=== PATIENT | female | born 1995 | race Caucasian/White ===

== ENCOUNTER 2023-04-11 23:42 | Inpatient (IN) | payer BC, SELFPAY ==
[2023-04-11 23:54] VITALS: BP 109/57; PULSE 74
[2023-04-12] VITALS (14 sets, daily range): BP systolic 110–130; BP diastolic 59–82; PULSE 63–83; RESP 16; TEMP 36.3–37.1; O2SAT 96–97; BMI 28.7
--- NOTE | 2023-04-12 00:45 | PM.OBHPLI ---
OB - H&P: HPI Labor/Induction History of Present Illness Date Seen: 04/12/23 Chief Complaint: The patient is a 28 year old 3 para 1 at 39.6 weeks gestation by LMP, who presents with active labor. She is a patient at [facility] who is on divert. She was told that Adelso was also on divert so she was sent to us. She was found to be complete with a bulging bag per RN exam when she presented. She states that she started jason regularly around 2129. She denies any complications during her , that she was GBS negative and O+ blood type. I do not have records to confirm this information. Records have been requested. Chief complaint: maternity : 3 Para: 1 Narrative: Kika Lake is a 28 year old female History of Present Medical complications: none Labs Blood type: O (+) positive GBS status: negative Review of Systems Status of ROS: Reports: 10 or more systems reviewed and unremarkable except as noted in History and below Meds Home Medications and Allergies Home Medications Medication Instructions Recorded Confirmed Type No Known Home Medications 04/12/23 04/12/23 History Allergies Allergy/AdvReac Type Severity Reaction Status Date / Time No Known Drug Allergies Allergy Verified 04/12/23 00:54 OB - H&P: Exam Physical Exam: Vital signs: Pulse BP 83 127/74 04/12/23 00:37 04/12/23 00:37 Constitutional: Constitutional: no acute distress Routine Neck Exam: Neck: Present full ROM Routine Respiratory Exam: Respiratory: Present CTA bilaterally Routine Cardiovascular Exam: Cardiovascular: RRR Detailed Labor and Delivery Exam: Patient Gravid: Yes Dilation (cm): 10 (per RN exam) Contraction frequency (min): 2 Tachysystole: No Contraction intensity: Strong/Firm Fetus (Single): Amniotic Membrane Status: intact Heart Rate Baseline: 150 Monitor Accelerations: Present Monitor Decelerations: None Hog Operator Variability: Moderate (6-25) Routine Back/Spine/Pelvis Exam: Back/Spine: full ROM Routine Psychiatric Exam: Present normal affect OB - Problem Based A/P Additional Plan (1) Pain during labor: Status: Acute (2) Term : Status: Acute Plan ASSESSMENT:? at 39.6 weeks gestation? GBS negative? Uncomplicated ? PLAN:? 1.Candidate for analgesia of choice. Planning unmedicated .? 2.Anticipate ? 3. Expectant management at this time.? ? Delivery/Labor/Induction Plan Plan: expectant management
--- NOTE | 2023-04-12 01:15 | W.PM.OBVAGDE ---
OB Procedure Vag Delivery Mother Details Mother Details: The patient is a 28 year-old, 3, Para 1, admitted on 04/11/23 at 39.6 Days gestation for active labor.? Cervical exam on admission was 10 cm per RN exam with membranes intact in vertex presentation.? Contractions were every 2-3 minutes.? heart rate demonstrated baseline 150 bpm with moderate variability, + accelerations, - decelerations; a category 1 tracing.? SROM occurred at 0009 with clear fluid.? : 3 Para: 1 Weeks Gestation: 39.6 Admission Date: 04/11/23 Additional Details Amniotic Membrane Status: SROM Amniotic Membrane Rupture Date: 04/12/23 Amniotic Membrane Rupture Time: 00:09 Amniotic Membrane Fluid Description: Clear Analgesia/Anesthesia Type: None Waterbirth: No Pitcoin: No Intrapartal Events: Precipitous Labor <3 Hrs Labor Onset: 21:30 Complete: 23:28 Pushin:09 Heart: heart tones during second stage were category 2 with baseline 150, +accels, -decels and moderate variability. Delivery Details Delivery Date: 04/12/23 Delivery Time: 00:11 Route of delivery: Gender: Female Viability: Alive; Heart Rate Present Position at Delivery: OA Delivery Details: At 0011 a viable female delivered in vertex YARIEL presentation over intact perineum via spontaneous vaginal delivery.? was placed on maternal abdomen.? Cord was clamped and cut after a >5 minute delay.? Nose and mouth were bulb suctioned.? weight pending.? 7 at 1 minute and 8 at 5 minutes.? Shoulder dystocia: no.? Nuchal cord: no.? 1 Minute Interval Total Score: 7 5 Minute Interval Total Score: 8 Additional Details Shoulder Dystocia: No Placenta Delivery Time: 00:17 Placental Delivery Description: Spontaneous Procedure Done: only Blood Loss: 100 Laceration: Perineal - 1st Degree (not repaired) Blood Loss Measurement Type: QBL Bakri Used: No Sponge/Need Count Correct: Yes Cord Vessel Description: 3 Vessels and True Knot Event Summary Status: Mother and infant were stable after delivery. Disposition: floor
[2023-04-12] MEDS: IBUPROFEN 600 MG TABLET PO ×3 (05:00→18:03)
[2023-04-12] MEDS: ACETAMINOPHEN 500 MG TABLET 1000 MG PO ×3 (07:51→21:55)
[2023-04-12] MEDS: DOCUSATE SODIUM 100 MG CAPSULE PO (07:51)
[2023-04-13] VITALS: BP 102/62; PULSE 70; RESP 16; TEMP 36.3; O2SAT 97
[2023-04-13] MEDS: IBUPROFEN 600 MG TABLET PO (06:30)
[2023-04-13 07:00] LABS: Hemoglobin* 12.5 gm/dL (12.0-16.0)
--- NOTE | 2023-04-13 07:52 | P.DS_ITS ---
DS: Providers Provider Date Seen: 04/13/23 Date of admission: 04/11/23 23:42 Primary care physician: Not a Local Provider Admitting Clinician: Carito Alejo CNM Attending Physician on discharge: Nohemy Maya CNM DS: Diagnosis Discharge Diagnosis (1) care and examination immediately after delivery: Status: Acute (2) Lactating mother: Status: Acute (3) Normal spontaneous vaginal delivery: Status: Acute Exam Narrative: Exam Narrative: GENERAL APPEARANCE:? normal affect, alert, no distress MOOD:? appropriate CHEST:? clear to auscultation HEART:? regular rate and rhythm ABDOMEN:? soft, non-tender the uterine fundus is 1 below Umbilicus, Midline and is appropriate for the stage of recovery. PERINEUM:? mild edema of the perineum, there is a Perineal Laceration,?1st degree, that is healing well. EXTREMITIES:? normal and no edema Const: Vital Signs, click to edit/add: Vital Signs - 24 hr 04/12/23 07:55 04/12/23 12:02 04/12/23 15:47 Temperature 97.6 F 97.5 F L 98.8 F Pulse Rate [Blood Pressure Cuff] 77 76 83 Respiratory Rate 16 16 16 Blood Pressure [Ri ght Arm] 115/75 117/78 122/71 Pulse Oximetry 97 97 Oxygen Delivery Me thod Room Air Room Air Room Air 04/12/23 19:58 04/13/23 00:00 Temperature 97.9 F 97.3 F L Pulse Rate [Blood Pressure Cuff] 76 70 Respiratory Rate 16 16 Blood Pressure [Ri ght Arm] 122/71 102/62 Pulse Oximetry 96 97 Oxygen Delivery Me thod Room Air Room Air Documenting provider has reviewed patient's vital signs: yes OB - DS: Summary Hospital Course Hospital Course: Kika is a 28 year old G 3 P 2 at 39 6/7 weeks gestation that was admitted to the Center on 04/11/23 for spontaneous onset of labor in the setting of her primary delivering setting being on divert. She had an uncomplicated vaginal delivery. She delivered a viable female infant. The patient feels well. ?The pain is well controlled with current medications. ?She has no new complaints. ?She is breast feeding and reports things are going ok. She desires to see today.? the patient has done well.? Vitals have been stable.? She has remained afebrile.? Has a good appetite, is tolerating a general diet. ?She is voiding without difficulty.? She is passing gas and has [not] had a bowel movement.? She is ambulating and denies any dizziness.? Has [Small] amount of rubra lochia. ?She is planning condoms for prevention. plan: Discharge home with baby. Follow up in 2 weeks and 6 weeks. Offered to return here for care or to her primary OB provider for follow-up. , may see if needed Hgb 12.5. Peripartum Data delivery method: Vaginal Laceration description: Perineal - 1st Degree A[place] Gender: Female Infant Discharge Plan: Home Status at Discharge Functional status at discharge: independent ambulation Overall status at discharge: patient is progressing back to baseline Time Spent with Patient Time attestation: Total time spent providing and/or coordinating discharge services: Discharge Plan Discharge Disposition: Home, Self-Care Date of Admission: 04/11/23 23:42 Attending Provider on Discharge: Nohemy Maya Primary Care Provider: Provider,Not a Local Condition: Stable Anticipated Discharge Date/Time: 04/13/23 12:00 Discharge Medications: New acetaminophen 500 mg Tablet 1,000 mg PO Q6H PRNQty: 0 0RF docusate sodium 100 mg Capsule 100 mg PO BID PRNQty: 90 0RF ibuprofen 600 mg Tablet 600 mg PO Q6H PRNQty: 60 0RF Discharge Orders: Discharge Order (Routine); Ordered 04/13/23 Ordered By: Nohemy Maya Patient Education: OB Over the Counter Medication Information, OB Vaginal/Breast Feeding Additional Instructions: Discharge instructions were reviewed with the patient including signs and symptoms of infection and home going medications Nothing vaginally for 6 weeks: no tampons or intercourse Off Work or School for 6 weeks 2-week visit: discuss infant feeding concerns, review control options and screen for anxiety/depression. 6-week visit for an annual exam. consultation services are available to all mothers and babies for the first year after delivery.? To make an appointment, please call [phone]. Activity Level: Activity as Tolerated Follow Up Appointments: Provider,Not a Local [Primary Care Provider] - [facility] [Provider Group] (May return to primary OB provider or to [place] for care) Forms: [employer] Info Instructions
[2023-04-13 08:00] VITALS: BP 114/71; PULSE 76; RESP 16; TEMP 36.7; O2SAT 97
== END 2023-04-13 12:00 | disposition home or self-care (01) | DRG 560 ==
LOC: OB OUT 23:43 → OB 04-12 08:07
PROVIDERS: Obstetrics & Gynecology; Admitting Provider Advanced Practice Midwife; Visit Provider Advanced Practice Midwife
DX: O70.0 First degree perineal laceration during delivery (principal); Z3A.39 39 weeks gestation of pregnancy; Z37.0 Single live birth
CPT/HCPCS: 36415; 85018; 99213; A9270